=== PATIENT | female | born 1950 | race Caucasian/White ===

== ENCOUNTER 2023-11-18 13:48 | Emergency (ER) | payer OTHER, MEDICARE | END 2023-11-18 15:06 | disposition home or self-care (01) | LOC: EDBD 13:48 → JP.ED 13:48 | DX: J40 Bronchitis, not specified as acute or chronic (principal); E78.00 Pure hypercholesterolemia, unspecified; Z88.5 Allergy status to narcotic agent; Z79.899 Other long term (current) drug therapy | CPT/HCPCS: 99283 ==